=== PATIENT | female | born 1995 | race Caucasian/White ===

== ENCOUNTER 2018-06-20 09:15 | Emergency (ER) | payer OTHER ==
[2018-06-20] MEDS: IBUPROFEN 800 MG TAB PO (09:54)
== END 2018-06-20 10:00 | disposition home or self-care (01) ==
LOC: FTE 09:15
DX: S09.22XA Traumatic rupture of left ear drum, initial encounter (principal); X58.XXXA Exposure to other specified factors, initial encounter; Y92.9 Unspecified place or not applicable
CPT/HCPCS: 99283; Z7502

== ENCOUNTER 2018-09-15 23:57 | Emergency (ER) | payer OTHER ==
[2018-09-16] MEDS: IBUPROFEN 600 MG TAB PO (01:14)
== END 2018-09-16 03:03 | disposition home or self-care (01) ==
LOC: FTE 23:57
DX: S02.2XXA Fracture of nasal bones, initial encounter for closed fracture (principal); F17.210 Nicotine dependence, cigarettes, uncomplicated; Y04.0XXA Assault by unarmed brawl or fight, initial encounter; Y92.9 Unspecified place or not applicable
CPT/HCPCS: 70486; 99284-25

== ENCOUNTER 2019-03-28 01:10 | Emergency (ER) | payer OTHER ==
[2019-03-28] MEDS ORDERED: ONDANSETRON (ODT) 4 MG TAB ODT (04:15)
[2019-03-28] MEDS ORDERED: ACETAMINOPHEN 500 MG TAB PO (04:15)
== END 2019-03-28 05:51 | disposition home or self-care (01) ==
LOC: FTE 01:10
DX: R07.0 Pain in throat (principal)
CPT/HCPCS: 99283; Z7502